=== PATIENT | male | born 1970 | race African-American/Black ===

== ENCOUNTER 2016-05-10 12:20 | Emergency (ER) | payer OTHER ==
[~2016-05-10] VITALS: Ht 175.3 cm; Wt 84.4 kg
[~2016-05-10 12:20] MED LIST: HYDR12.58 PO
[2016-05-10] MEDS ORDERED: MECLIZINE HCL 12.5 MG TABLET. PO ONE (13:15)
[2016-05-10 13:35] LABS: CALCIUM 9.7 mg/dL (8.5-10.1); GFR 98.2; POTASSIUM 3.5 mmol/L (3.5-5.1)
[2016-05-10 14:00] VITALS: BP 128/88
[2016-05-10] MEDS ORDERED: MECL25TA3 PO (14:03)
--- NOTE | 2016-05-10 14:03 | PHYS DOC ---
Past Medical History Past Medical History: Asthma, GERD, Hypertension Additional Past Medical Histor: Vit D Deficiency Past Surgical History: No Surgical History Alcohol Use: None Drug Use: None Adult General Chief Complaint Chief Complaint: DIZZY/LIGHT HEADED HPI HPI Patient is a 46 year old male who presents with intermittent dizziness over the past 2 days. States dizziness comes with position changes including from laying to standing or sometimes moving his head. Also sometimes has spontaneous dizziness. Dizziness last seconds to minutes and quickly fatigues. He denies nausea or vomiting, headache, vision changes, neck pain, neck manipulation, neck trauma, numbness, tingling, weakness, chest pain, palpitations, abdominal pain, diarrhea, dysuria. Review of Systems Review of Systems Constitutional: Denies fever or chills [] Eyes: Denies change in visual acuity, redness, or eye pain [] HENT: Denies nasal congestion or sore throat [] Respiratory: Denies cough or shortness of breath [] Cardiovascular: No additional information not addressed in HPI [] GI: Denies abdominal pain, nausea, vomiting, bloody stools or diarrhea [] : Denies dysuria or hematuria [] Musculoskeletal: Denies back pain or joint pain [] Integument: Denies rash or skin lesions [] Neurologic: Denies headache, focal weakness or sensory changes [] Endocrine: Denies polyuria or polydipsia [] Current Medications Current Medications Current Medications Medications (Trade) Dose Ordered Sig/Osmani Start Time Stop Time Status Last Admin Dose Admin Meclizine HCl (Antivert) 25 mg 1X ONCE 05/10/16 13:15 05/10/16 13:16 DC 05/10/16 13:18 25 MG Allergies Allergies Allergies Coded Allergies Type Severity Reaction Last Updated Verified No Known Drug Allergies 09/04/13 No Physical Exam Physical Exam Constitutional: Well developed, well nourished, no acute distress, non-toxic appearance. [] HENT: Normocephalic, atraumatic, bilateral TMs normal, oropharynx moist, no oral exudates, nose normal. [] Eyes: PERRLA, EOMI. [] Neck: Normal range of motion, supple. [] Cardiovascular:Heart rate regular rhythm [] Lungs & Thorax: Bilateral breath sounds clear to auscultation [] Abdomen: Bowel sounds normal, soft, no tenderness. [] Skin: Warm, dry, no erythema, no rash. [] Back: Normal range of motion. [] Extremities: No tenderness, ROM intact, no edema, ambulatory with a steady gait. [] Neurologic: Alert and oriented X 3, normal motor function, normal sensory function, no focal deficits noted, cranial nerves II through XII intact, no pronator drift, normal finger to nose. [] Psychologic: Affect normal, judgement normal, mood normal. [] Current Patient Data Vital Signs Vital Signs Date Time Temp Pulse Resp B/P Pulse Ox O2 Delivery O2 Flow Rate FiO2 05/10/16 14:00 58 15 128/88 99 05/10/16 12:35 98.3 Room Air 98.3 Lab Values Laboratory Tests Test 05/10/16 12:25 Sodium Level 139mmol/L (136-145) Potassium Level 3.5mmol/L (3.5-5.1) Chloride Level 101mmol/L (98-107) Carbon Dioxide Level 31mmol/L (21-32) Anion Gap 7 (6-14) Blood Urea Nitrogen 7mg/dL (8-26) L Creatinine 1.0mg/dL (0.7-1.3) Estimated GFR (Cockcroft-Gault) 98.2 Glucose Level 145mg/dL (70-99) H Calcium Level 9.7mg/dL (8.5-10.1) Laboratory Tests 05/10/16 12:25 EKG EKG EKG as interpreted by me as normal sinus rhythm, rate 61, no ST-T changes, normal intervals, no ectopy Course & Med Decision Making Course & Med Decision Making Pertinent Labs and Imaging studies reviewed. (See chart for details) Laboratory evaluation is unremarkable. Likely has peripheral vertigo. Will treat symptomatically with meclizine. Return precautions given. He understands and agrees with plan. Dragon Disclaimer Dragon Disclaimer This electronic medical record was generated, in whole or in part, using a voice recognition dictation system. Departure Departure Impression: Primary Impression: Vertigo Disposition: HOME, SELF-CARE Condition: STABLE Referrals: NON,STAFF (PCP) Patient Instructions: Vertigo, [id number] Additional Instructions: Take meclizine to help with vertigo. Follow-up with your primary care doctor. Return for any concerns. Scripts Meclizine Hcl 25 Mg Tablet1 Tab PO PRN TID PRN DIZZINESS #20 TAB Prov:Shellie CARSON MD 05/10/16 Shellie CARSON MD May 10, 2016 14:03
--- NOTE | 2016-05-11 11:35 | EKG ---
[facility] [address] [place] [id number] Test Date: 2016-05-10 Test Time: 12:34:54 Pat Name: NILTON TRAYLOR Department: Room: Gender: M [employer] Developer: : 1970 Requested By: Shellie CARSON Order Number: [id number] Reading MD: Elba Timmons Measurements Intervals [place] Rate: 61 P: 47 DC: 182 QRS: 26 QRSD: 78 T: 35 QT: 364 QTc: 371 Interpretive Statements SINUS RHYTHM LEFT ATRIAL ABNORMALITY RI6.01 Unconfirmed report Compared to ECG 03/10/2016 13:54:41 Atrial abnormality now present Electronically Signed On 05-12-2016 0:32:50 [employer] by Elba Timmons
== END 2016-05-10 14:15 | disposition home or self-care (01) ==
LOC: ER 12:20
DX: R42 Dizziness and giddiness (principal); I10 Essential (primary) hypertension; J45.909 Unspecified asthma, uncomplicated; K21.9 Gastro-esophageal reflux disease without esophagitis
CPT/HCPCS: 36415; 80048; 93005; 99285; J8597